=== PATIENT | female | born 1935 | race Two or more races ===

== ENCOUNTER 2024-05-13 19:04 | Inpatient (IN) | payer SELFPAY ==
[~2024-05-13] VITALS: Ht 157.5 cm; Wt 75.6 kg
--- NOTE | 2024-05-13 19:10 | ED.PDOC ---
History of Present Illness HPI Comments 88-year-old female with PMHx Seizures, HTN brought in by EMS presents with a chief complaint of generalized weakness, cough, and SOB. Per daughter, patient is visiting from [place] and had the "flu" x 4 weeks ago and has "progressively getting weaker". Patients daughter mentions that patient has been losing her strength and not able to ambulate like she normally does. Patient is sating at 91% on room air and was placed on 6L via O2 and is on a current dual neb breathing treatment. Time Seen by MD: 19:02 Reviewed Notes: Medications, Allergies Allergies: Coded Allergies: NO KNOWN ALLERGIES (Unverified , 05/13/24) Information Source: Relative (Child), Emergency Med Personnel Mode of Arrival: EMS Severity: Moderate Timing: Days Duration: Since onset Prehospital treatment: Breathing Tx, Oxygen Past Medical History PAST MEDICAL HISTORY: HTN, Seizures Surgical History: Denies all surgeries CARD TENDER History: Denies all CARD TENDER Hx Family History Family History: Reviewed,noncontributory to illness Social History Smoker: Non-Smoker Alcohol: Denies ETOH Use Drugs: Denies Drug Use Lives In: Home Constitutional: reports: weakness; denies: chills, diaphoresis, fatigue, fever, malaise, sweats, others EENTM: denies: blurred vision, double vision, ear bleeding, ear discharge, ear drainage, ear pain, ear ringing, eye pain, eye redness, hearing loss, mouth pain, mouth swelling, nasal discharge, nose bleeding, nose congestion, nose pain, photophobia, tearing, throat pain, throat swelling, voice changes, others Respiratory: reports: cough, shortness of breath; denies: hemoptysis, orthopnea, SOB at rest, SOB with excertion, stridor, wheezing, others Cardiovascular: denies: chest pain, dizzy spells, diaphoresis, Dyspnea on exertion, edema, irregular heart beat, left arm pain, lightheadedness, palpitations, PND, syncope, others Gastrointestinal: denies: abdomen distended, abdominal pain, blood streaked bowels, constipated, diarrhea, dysphagia, difficulty swallowing, hematemesis, melena, nausea, poor appetite, poor fluid intake, rectal bleeding, rectal pain, vomiting, others Genitourinary: denies: abnormal vagina bleeding, burning, dyspareunia, dysuria, flank pain, frequency, hematuria, incontinence, pain, , vagina discharge, urgency, others Neurological: denies: dizziness, fainting, headache, left sided numbness, left sided weakness, numbness, paresthesia, pre-existing deficit, right sided numbness, right sided weakness, seizure, speech problems, tingling, tremors, weakness, others Musculoskeletal: denies: back pain, gout, joint pain, joint swelling, muscle pain, muscle stiffness, neck pain, others Integumetry: denies: bruises, change in color, change in hair/nails, dryness, laceration, lesions, lumps, rash, wounds, others Allergic/Immunocompromised: denies: Difficulty Healing, Frequent Infections, Hives, Itching, others Hematologic/Lymphatic: denies: anemia, blood clots, easy bleeding, easy bruising, swollen glands, others Endocrine: denies: excessive hunger, excessive sweating, excessive thirst, excessive urination, flushing, intolerance to cold, intolerance to heat, unexplained weight gain, unexplained weight loss, others Psychiatric: denies: anxiety, bipolar disorder, depression, hopeless, panic disorder, schizophrenia, sleepless, suicidal, others All Other Systems: Reviewed and Negative Physical Exam General Appearance: No Apparent Distress, Normal HEENT: Normal ENT Inspection, Pharynx Normal, TMs Normal Neck: Full Range of Motion, Non-Tender, Normal, Normal Inspection Respiratory: Chest Non-Tender, Lungs Clear, No Accessory Muscle Use, No Respiratory Distress, Normal Breath Sounds Cardiovascular: No Edema, No JVD, No Murmur, No Gallop, Normal Peripheral Pulses, Regular Rate/Rhythm Breast Exam: Deferred Gastrointestinal: No Organomegaly, Non Tender, No Pulsatile Mass, Normal Bowel Sounds, Soft Genitalia: Deferred Pelvic: Deferred Rectal: Deferred Extremities: No calf tenderness, Normal capillary refill, Normal inspection, Normal range of motion, Non-tender, No pedal edema Musculoskeletal : Apperance: Normal Neurologic: Alert, mobile application architect II-XII nml as Tested, No Motor Deficits, Normal Affect, Normal Mood, No Sensory Deficits Cerebellar Function: Normal Reflexes: Normal Skin: Dry, Normal Color, Warm Lymphatic: No Adenopathy Was a procedure done? Was a procedure done?: No Differential Dx Considerations may include: viral syndrome, uti, pneumonia, electrolyte abnormality, acs, X-Ray, Labs, Meds, VS Vital Signs Date Time Temp Pulse Resp B/P (MAP) Pulse Ox O2 Delivery O2 Flow Rate FiO2 05/13/24 23:00 99.1 95 25 135/61 (85) 95 99.1 05/13/24 20:30 99.7 05/13/24 19:55 101.5 93 27 122/60 (80) 94 101.5 05/13/24 19:55 93 27 94 Nasal Cannula* 2 28 05/13/24 19:10 100.3 96 24 150/79 (102) 95 05/13/24 19:08 89 Lab Test 05/13/24 20:40 05/13/24 20:33 05/13/24 19:29 Range/Units Lactic Acid Level 0.9 0.4-2.0 mmol/L Troponin I High Sensitivity 5 4 </=34 ng/L Influenza Type A Antigen Negative Negative Influenza Type B Antigen Negative Negative SARS-CoV-2 Antigen (Rapid) Negative NEGATIVE White Blood Count 7.7 4.4-10.8 10^3/uL Red Blood Count 3.70 L 4.0-5.20 10^6/uL Hemoglobin 11.5 L 12.2-16.2 g/dL Hematocrit 33.3 L 36.0-46.0 % Mean Corpuscular Volume 89.8 80.0-100.0 fL Mean Corpuscular Hemoglobin 31.0 28.0-32.0 pg Mean Corpuscular Hemoglobin Concent 34.5 32.0-36.0 g/dL Red Cell Distribution Width 13.9 11.8-14.3 % Platelet Count 308 140-450 10^3/uL Mean Platelet Volume 6.8 L 6.9-10.8 fL Neutrophils (%) (Auto) 83.2 H 37.0-80.0 % Lymphocytes (%) (Auto) 10.9 10.0-50.0 % Monocytes (%) (Auto) 5.5 0.0-12.0 % Eosinophils (%) (Auto) 0.3 0.0-7.0 % Basophils (%) (Auto) 0.1 0.0-2.0 % Neutrophils # (Auto) 6.4 1.6-8.6 10 ^3/uL Lymphocytes # (Auto) 0.8 0.4-5.4 10 ^3/uL Monocytes # (Auto) 0.4 0-1.3 10 ^3/uL Eosinophils # (Auto) 0 0-0.8 10 ^3/uL Basophils # (Auto) 0 0-0.2 10 ^3/uL Nucleated Red Blood Cells 0.1 % Sodium Level 121 L 136-145 mmol/L Potassium Level 4.6 3.5-5.1 mmol/L Chloride Level 91 L 98-107 mmol/L Carbon Dioxide Level 20 20-31 mmol/L Anion Gap 10 5-15 Blood Urea Nitrogen 10 9-23 mg/dL Creatinine 0.94 0.550-1.02 mg/dL Glomerular Filtration Rate Calc 59 >90 mL/min BUN/Creatinine Ratio 10.6 10.0-20.0 Serum Glucose 124 H 74-106 mg/dL Calcium Level 9.5 8.7-10.4 mg/dL B-Type Natriuretic Peptide 27.76 0-100 pg/mL Current Medications Medications (Trade) Dose Ordered Sig/Yasemin Route Start Time Stop Time Status Last Admin Sodium Chloride 1,000 ml @ 1,000 mls/hr Q1H ONCE IV 05/13/24 20:30 05/13/24 21:40 DC 05/13/24 21:48 Ondansetron HCl (Zofran) 4 mg ONCE ONCE IV 05/13/24 20:30 05/13/24 21:40 DC 05/13/24 21:49 Cefepime HCl 50 ml @ 12.5 mls/hr ONCE ONCE IV 05/13/24 20:30 05/14/24 00:29 05/13/24 23:01 Time of 1ST Reevaluation: 19:32 Reevaluation 1ST: Unchanged Patient Education/Counseling: Diagnosis, Treatment, Prognosis Family Education/Counseling: Diagnosis, Treatment, Prognosis Departure 1 Departure Time of Disposition: 23:57 (Patient with worsening weakness and fever concerning for infection. Patient is not septic. ) Impression: Primary Impression: Fever Qualified Codes: R50.9 - Fever, unspecified Additional Impression: Weakness Disposition: 09 ADMITTED INPATIENT Admit to: Med Surg Condition: Serious Critical Care Note Critical Care Time?: No Stability Stability form required: No I personally scribed for GUANAKITO APPIAH MD ([email or web address]) on 05/13/24 at 19:10. Electronically submitted by Vj Hussein ([email or web address]). GUANAKITO APPIAH MD May 13, 2024 19:10
[2024-05-13 19:55] VITALS: PULSE 93; RESP 27; O2SAT 94
[2024-05-13 20:03] LABS: White Blood Cell 7.7 10^3/uL (4.4-10.8)
[2024-05-13 20:07] LABS: Anion Gap 10 (5-15); Calcium 9.5 mg/dL (8.7-10.4); Carbon Dioxide 20 mmol/L (20-31); Potassium 4.6 mmol/L (3.5-5.1)
[2024-05-13 20:10] LABS: Basophils # (auto) 0 10 ^3/uL (0-0.2); Basophils % (auto) 0.1 % (0.0-2.0); Eosinophils # (auto) 0 10 ^3/uL (0-0.8); Eosinophils % (auto) 0.3 % (0.0-7.0); Hematocrit 33.3 % (36.0-46.0); Hemoglobin 11.5 g/dL (12.2-16.2); Lymphocytes # (auto) 0.8 10 ^3/uL (0.4-5.4); Lymphocytes % (auto) 10.9 % (10.0-50.0); Mean Corpuscular Hgb Conc. 34.5 g/dL (32.0-36.0); Mean Corpuscular Volume 89.8 fL (80.0-100.0); Monocytes # (auto) 0.4 10 ^3/uL (0-1.3); Monocytes % (auto) 5.5 % (0.0-12.0); Neutrophils # (auto) 6.4 10 ^3/uL (1.6-8.6); Neutrophils % (auto) 83.2 % (37.0-80.0); Nucleated Red Blood Cells % 0.1 %; Platelet Count (auto) 308 10^3/uL (140-450); Red Cell Distribution Width 13.9 % (11.8-14.3)
[2024-05-13 20:13] LABS: BUN/Creatinine Ratio 10.6 (10.0-20.0); Blood Urea Nitrogen 10 mg/dL (9-23)
[2024-05-13 20:16] LABS: Chloride 91 mmol/L (98-107); Glucose 124 mg/dL (74-106); Sodium 121 mmol/L (136-145)
--- NOTE | 2024-05-13 20:21 | DVH ---
CHEST RADIOGRAPH Indication: sob Technique: Single frontal view of the chest was obtained Comparison: None FINDINGS: Lines and Tubes: None Lungs: No focal consolidation. Pleura: No effusion. No pneumothorax. Cardiomediastinal contours: Unremarkable Bones: No acute osseous abnormality. IMPRESSION: No acute cardiopulmonary disease.
[2024-05-13] MEDS: ACETAMINOPHEN 325 MG TAB PO ONE (20:30)
[2024-05-13 21:08] LABS: COVID19 ANTIGEN SOFIA FIA NEGATIVE (NEGATIVE); Rapid Influenza A Negative (Negative); Rapid Influenza B Negative (Negative)
[2024-05-13] MEDS: SODIUM CHLORIDE 0.9% 1,000 ML IV ONE (21:48)
[2024-05-13] MEDS: ONDANSETRON HCL 4 MG/2 ML VIAL IV ONE (21:49)
[2024-05-13] MEDS: CEFEPIME 2GM/50ML NS 50 ML IV ONE (23:01)
[2024-05-14] VITALS (12 sets, daily range): BP systolic 118–150; BP diastolic 56–65; PULSE 62–95; RESP 16–18; TEMP 98.2–101.5; O2SAT 93–100
[2024-05-14] MEDS ORDERED: VANCOMYCIN PER PHARMACY 0 MG IV SCH (02:15)
[2024-05-14] MEDS: guaiFENesin 200 MG/10 ML UD PO ONE (02:16)
[2024-05-14] MEDS: SODIUM CHLORIDE 0.9% 1,000 ML IV ONE (02:18)
[2024-05-14] MEDS: VANCOMYCIN 1.75GM/350ML 350 ML IV ONE (03:04)
[2024-05-14 03:27] LABS: Protein, Urine 41.9 mg/dL (1-14)
[2024-05-14 03:30] LABS: Benzodiazephine Screen, Urine Neg (NEGATIVE); Creatinine, Urine 116.12 mg/dL (30.0-125.0); Opiate Scree,Urine Neg (NEGATIVE); Phencyclidine Screen, Urine Neg (NEGATIVE); Urine Protein/Creatinine Ratio 0.36
[2024-05-14 03:31] LABS: Urine Bacteria MANY /hpf (None Seen); Urine Blood Negative /uL (Negative); Urine Budding Yeast OCCASIONAL /hpf (None Seen); Urine Clarity Turbid (Clear); Urine Color Yellow (Yellow); Urine Mucus FEW (None Seen); Urine Protein, UAD TRACE (Negative); Urine Specific Gravity 1.017 (1.001-1.035); Urine Urobilinogen Normal (Negative); Urine WBC 28 /hpf (0 - 5)
[2024-05-14 03:32] LABS: Amphetamine Screen, Urine Neg (NEGATIVE); Barbiturate Scree,Urine Neg (NEGATIVE); Cannabinoid Screen, Urine Neg (NEGATIVE); Cocaine Screen, Urine Neg (NEGATIVE)
[2024-05-14 03:58] LABS: Alanine Aminotransferase 14 U/L (7-40); Albumin 4.1 g/dL (3.2-4.8); Alkaline Phosphatase 68 U/L (46-116); Anion Gap 6 (5-15); Aspartate Aminotransferase 17 U/L (13-40); BUN/Creatinine Ratio 13.8 (10.0-20.0); Blood Urea Nitrogen 12 mg/dL (9-23); Carbon Dioxide 22 mmol/L (20-31); Potassium 4.5 mmol/L (3.5-5.1)
[2024-05-14 03:59] LABS: Bilirubin, Total 0.4 mg/dL (0.2-1.0); Total Protein 6.3 g/dL (5.7-8.2)
[2024-05-14 04:21] LABS: Calcium 7.6 mg/dL (8.7-10.4); Chloride 94 mmol/L (98-107); Glucose 113 mg/dL (74-106); Sodium 122 mmol/L (136-145)
[2024-05-14] MEDS ORDERED: SERT-206 PO (06:17)
[2024-05-14] MEDS ORDERED: LEVE500T40 PO (06:17)
[2024-05-14] MEDS ORDERED: ATOR10TA PO (06:17)
[2024-05-14] MEDS ORDERED: OMEP20TA PO (06:17)
[2024-05-14] MEDS ORDERED: CAND16TA PO (06:17)
[2024-05-14] MEDS ORDERED: SOLI5TAB42 PO (06:17)
[2024-05-14] MEDS ORDERED: CAR25T PO (06:17)
--- NOTE | 2024-05-14 06:18 | DVHHPRES ---
History of Present Illness Resident Creating Document: ARGENTINA PAYTON RESIDENT History of Present Illness Patient is a 88-year-old female with a past medical history as described was brought to the ED with a chief complaint of flu-like illness and generalized weakness since 3-4 days. Patient is a yakut speaking female who is accompanied by her daughter who recently came from [place], about 4 weeks ago she had shingles under the left breast following which she was given 1 week of anti viral medication. Since past 1 week patient was having flu-like as with the symptoms of cough and associated yellowish green phlegm with the associated chills and had fever but not documented, shortness of breath and mild increased work of breathing. The daughter reports that patient has been getting weaker and sleeps most of the day and is unable to get out of the bed without support. At her baseline she is able to walk with a walker. Past medical history: Hypertension, hyperlipidemia, GERD, history of seizure( 1 seizure in 2017) Past surgical history: Back surgery for lumbar fusion, left shoulder surgery for rotator cuff tear Social history: Patient lives with family and denies smoking, alcohol, drug use Home medications: Candesartan 16 mg q.d., atorvastatin 10 mg q.d., Keppra 750 mg b.i.d., sertraline 50 mg hs, omeprazole 20 mg q.d. Review of Systems Review of Systems Patient seen and examined at bedside. Patient has wet coughing but is not able to cough up sputum and feels congested. Reports generalized weakness Denies chest pain, shortness of breath while on oxygen, headache, body aches. Allergies: Coded Allergies: NO KNOWN ALLERGIES (Unverified , 05/13/24) Medications Current Medications Medications Dose Ordered Sig/Yasemin Route Start Time Stop Time Status Last Admin Dose Admin Levetiracetam 750 mg BID PO 05/14/24 10:00 Azithromycin 250 ml @ 125 mls/hr DAILY IV 05/14/24 09:00 Losartan Potassium 50 mg DAILY PO 05/14/24 10:00 Atorvastatin Calcium 20 mg HS PO 05/14/24 22:00 Enoxaparin Sodium 40 mg DAILY SC 05/14/24 10:00 Vancomycin HCl 0 ml @ 0 mls/hr UD IV 05/14/24 02:15 UNV Cefepime HCl 50 ml @ 12.5 mls/hr Q12HR IV 05/14/24 10:00 Albuterol 2.5 mg Q8HR NEB 05/14/24 06:00 Ipratropium [place] 0.5 mg Q8HR NEB 05/14/24 06:00 Acetaminophen 650 mg Q6HP PRN PO 05/14/24 06:15 Exam Vital Signs Vital Signs Date Time Temp Pulse Resp B/P (MAP) Pulse Ox O2 Delivery O2 Flow Rate FiO2 05/14/24 03:00 79 24 142/59 (86) 94 05/14/24 02:30 101.5 2.0 28 101.5 05/13/24 19:55 Nasal Cannula* Exam Physical Examination Constitutional: Patient was alert and oriented to time, place and person. Lying in bed comfortably in no acute distress. Gen - no pallor, no icterus, no cyanosis, no clubbing, no LAD, no edema . Skin - Patients skin is warm and dry. HEENT - normocephalic, atraumatic, moist mucous membranes. Neck - full ROM, no LAD, mild JVP elevation with a pulse seen above the mid SCM Pulmonary - B/L vesicular breath sounds with mild right basilar crackles, mild scattered wheezes cardiovascular - normal S1,S2 heard. no murmurs heard. peripheral pulses radial 2+, pedal 2+. GI - soft abdomen without tenderness to palpation. no hepatospleenomegaly. Bowel sounds normoactive Neurological - Bilateral upper extremity strength 5/5, bilateral lower extremity strength 5/5, patient has a right foot drop, no facial droop, normal speech, no tremor, no sensory deficiets. Labs/Xrays Labs Test 05/14/24 03:05 05/14/24 02:09 05/13/24 20:40 05/13/24 20:33 Range/Units Sodium Level 122 L 136-145 mmol/L Potassium Level 4.5 3.5-5.1 mmol/L Chloride Level 94 L 98-107 mmol/L Carbon Dioxide Level 22 20-31 mmol/L Anion Gap 6 5-15 Blood Urea Nitrogen 12 9-23 mg/dL Creatinine 0.87 0.550-1.02 mg/dL Glomerular Filtration Rate Calc 65 >90 mL/min BUN/Creatinine Ratio 13.8 10.0-20.0 Serum Glucose 113 H 74-106 mg/dL Serum Osmolality 254 L 278-298 mOsm/kg Calcium Level 7.6 L 8.7-10.4 mg/dL Total Bilirubin 0.4 0.2-1.0 mg/dL Aspartate Amino Transferase (AST) 17 13-40 U/L Alanine Aminotransferase (ALT) 14 7-40 U/L Alkaline Phosphatase 68 46-116 U/L Total Protein 6.3 5.7-8.2 g/dL Albumin 4.1 3.2-4.8 g/dL Thyroid Stimulating Hormone (TSH) 0.30 L 0.55-4.78 uIU/mL Urine Color Yellow Yellow Urine Clarity Turbid H Clear Urine pH 6.0 5.0-9.0 Urine Specific [place] 1.017 1.001-1.035 Urine Protein Trace H Negative Urine Ketones Negative Negative Urine Blood Negative Negative /uL Urine Nitrite 2+ H Negative Urine Bilirubin Negative Negative Urine Urobilinogen Normal Negative mg/dL Urine Leukocyte Esterase 2+ Negative /uL Urine RBC <1 0 - 4 /hpf Urine WBC 28 0 - 5 /hpf Urine Squamous Epithelial Cells Few <5 /hpf Urine Bacteria Many H None Seen /hpf Urine Mucus Few None Seen Urine Yeast (Budding) Occasional None Seen /hpf Urine Osmolality 410 mOsm/kg Urine Creatinine 116.12 30.0-125.0 mg/dL Urine Protein/Creatinine Ratio 0.36 Urine Sodium 49 40-220 mmol/L Urine Glucose Normal Normal mg/dL Urine Total Protein 41.9 H 1-14 mg/dL Urine Opiates Screen Neg NEGATIVE Urine Fentanyl Screen Neg NEGATIVE Urine Barbiturates Screen Neg NEGATIVE Urine Phencyclidine Screen Neg NEGATIVE Urine Amphetamines Screen Neg NEGATIVE Urine Benzodiazepines Screen Neg NEGATIVE Urine Cocaine Screen Neg NEGATIVE Urine Cannabinoids Screen Neg NEGATIVE Lactic Acid Level 0.9 0.4-2.0 mmol/L Troponin I High Sensitivity 5 </=34 ng/L Influenza Type A Antigen Negative Negative Influenza Type B Antigen Negative Negative SARS-CoV-2 Antigen (Rapid) Negative NEGATIVE Test 05/13/24 19:29 Range/Units White Blood Count 7.7 4.4-10.8 10^3/uL Red Blood Count 3.70 L 4.0-5.20 10^6/uL Hemoglobin 11.5 L 12.2-16.2 g/dL Hematocrit 33.3 L 36.0-46.0 % Mean Corpuscular Volume 89.8 80.0-100.0 fL Mean Corpuscular Hemoglobin 31.0 28.0-32.0 pg Mean Corpuscular Hemoglobin Concent 34.5 32.0-36.0 g/dL Red Cell Distribution Width 13.9 11.8-14.3 % Platelet Count 308 140-450 10^3/uL Mean Platelet Volume 6.8 L 6.9-10.8 fL Neutrophils (%) (Auto) 83.2 H 37.0-80.0 % Lymphocytes (%) (Auto) 10.9 10.0-50.0 % Monocytes (%) (Auto) 5.5 0.0-12.0 % Eosinophils (%) (Auto) 0.3 0.0-7.0 % Basophils (%) (Auto) 0.1 0.0-2.0 % Neutrophils # (Auto) 6.4 1.6-8.6 10 ^3/uL Lymphocytes # (Auto) 0.8 0.4-5.4 10 ^3/uL Monocytes # (Auto) 0.4 0-1.3 10 ^3/uL Eosinophils # (Auto) 0 0-0.8 10 ^3/uL Basophils # (Auto) 0 0-0.2 10 ^3/uL Nucleated Red Blood Cells 0.1 % B-Type Natriuretic Peptide 27.76 0-100 pg/mL Assessment/Plan Assessment/Plan Assessment # acute hypoxic respiratory failure # community-acquired pneumonia likely due to ?viral ?gram+/- ?Atypical # hypertensive heart disease # hyponatremia ?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 Euthyroid sick syndrome ? Hyperthyroidism # dyslipidemia Plan - on 2 L oxygen via nasal cannula - COVID and influenza negative - sputum culture pending - vancomycin per pharmacy - cefepime 1 g IV q12 hours - azithromycin 500 mg IV q.d. - TSH 0.3, free T3 and T4 pending - vitamin B12 pending - on Keppra 750 mg b.i.d.(home dose) - on losartan 50 mg( at home patient takes candesartan 16 mg eq to losartan 100 mg) - on atorvastatin - DuoNebs q.8 hour - echo pending - evaluation for SIADH, urine osmolality> 400, serum osmolality 254, urine sodium 49. Sertraline held - patient given 1 L NS bolus in ER, further fluids held - monitor BMP for serum sodium. Trending 121--> 122 Goals of care discussed with the patient and the daughter for over 27 minutes. DNR Plan discussed Dr. Jesus Plan discussed with: Patient, Daughter My Orders Orders - ARGENTINA PAYTON Procedure Category Date Status Time Admit ADMIT 05/14/24 Transmitted 01:48 Oxygen By Nasal RT 05/14/24 Transmitted Cannula 01:48 Jewelry Casting Model Maker For ANJANA 05/14/24 In Process 24 Hours 01:48 Emergency Dysrhythmia ANJANA 05/14/24 In Process Protocol 01:48 Notify Md Of Changes ANJANA 05/14/24 In Process From Base 01:48 Levetiracetam Tablet PHA 05/14/24 In Process (Keppra Tablet) 10:00 Respiratory Culture NANCY 05/14/24 Logged W/ Gs 01:51 Azithromycin 500mg/ PHA 05/14/24 In Process 250ml (Zithromax 50 09:00 Losartan Tablet PHA 05/14/24 In Process (Cozaar Tablet) 10:00 Atorvastatin (Lipitor) PHA 05/14/24 In Process 22:00 Enoxaparin Sodium PHA 05/14/24 In Process (Lovenox) 10:00 Sodium Chloride 0.9% PHA 05/14/24 In Process 02:00 Echo 2d Mode Cardiac US 05/14/24 Logged DOP 02:04 Vancomycin Per PHA 05/14/24 Pending Pharmacy 02:15 Cefepime 1gm/ 50ml PHA 05/14/24 In Process (Maxipime 1gm/50ml) 10:00 Albuterol Medneb PHA 05/14/24 In Process (Ventolin Medneb) 06:00 Mrsa Screen NANCY 05/14/24 Uncollected 02:13 Ipratropium Medneb PHA 05/14/24 In Process (Atrovent Medneb) 06:00 Communication Order ORDERS 05/14/24 Transmitted 02:22 Code Status CODE 05/14/24 Transmitted 05:14 * Swallow Request ST 05/14/24 Transmitted 05:21 Pureed DIET 05/14/24 Transmitted Breakfast Acetaminophen Tablet PHA 05/14/24 In Process (Tylenol Tablet) 06:15 Date of Service: May 14, 2024 Billing Provider: ARGENTINA PAYTON Common Visit Codes: [id number] INP/OBS CARE (HIGH) Secondary Visit Codes: [id number] CARE PLAN 30 MINUTES ARGENTINA PAYTON May 14, 2024 06:18 ELIAS JESUS MD May 14, 2024 11:20
[2024-05-14] MEDS: ALBUTEROL SULF 2.5 MG/0.5ML(0.5%) NEB SOLN NEB SCH (06:39)
[2024-05-14] MEDS: IPRATROPIUM BROM 0.5 MG/2.5ML INH SOL NEB SCH (06:40)
[2024-05-14] MEDS: ACETAMINOPHEN 325 MG TAB PO PRN (07:37)
[2024-05-14] MEDS: PANTOPRAZOLE 40 MG TAB PO ONE (07:37)
[2024-05-14] MEDS: AZITHROMYCIN 500MG/ 250ML 250 ML IV SCH (08:20)
[2024-05-14] MEDS: levETIRAcetam 500 MG TAB PO SCH (08:27)
[2024-05-14] MEDS: LOSARTAN POTASSIUM 50 MG TAB PO SCH (08:30)
[2024-05-14] MEDS: ENOXAPARIN SOD 40 MG/0.4 ML SYRINGE SC SCH (08:32)
[2024-05-14 10:29] LABS: Basophils # (auto) 0 10 ^3/uL (0-0.2); Basophils % (auto) 0.2 % (0.0-2.0); Eosinophils # (auto) 0 10 ^3/uL (0-0.8); Eosinophils % (auto) 0.6 % (0.0-7.0); Hematocrit 29.9 % (36.0-46.0); Hemoglobin 9.8 g/dL (12.2-16.2); Lymphocytes # (auto) 1.3 10 ^3/uL (0.4-5.4); Lymphocytes % (auto) 16.1 % (10.0-50.0); Mean Corpuscular Hemoglobin 29.9 pg (28.0-32.0); Mean Corpuscular Hgb Conc. 32.7 g/dL (32.0-36.0); Mean Corpuscular Volume 91.3 fL (80.0-100.0); Monocytes # (auto) 0.5 10 ^3/uL (0-1.3); Monocytes % (auto) 6.3 % (0.0-12.0); Neutrophils % (auto) 76.8 % (37.0-80.0); Platelet Count (auto) 309 10^3/uL (140-450); Red Blood Cells 3.28 10^6/uL (4.0-5.20); Red Cell Distribution Width 13.8 % (11.8-14.3); White Blood Cell 7.8 10^3/uL (4.4-10.8)
[2024-05-14 10:40] LABS: Potassium 4.1 mmol/L (3.5-5.1)
[2024-05-14 10:41] LABS: Anion Gap 10 (5-15)
[2024-05-14 10:42] LABS: Calcium 9.2 mg/dL (8.7-10.4)
[2024-05-14 10:47] LABS: BUN/Creatinine Ratio 12.1 (10.0-20.0); Blood Urea Nitrogen 11 mg/dL (9-23)
[2024-05-14 11:18] LABS: Carbon Dioxide 19 mmol/L (20-31); Chloride 93 mmol/L (98-107); Glucose 120 mg/dL (74-106); Sodium 122 mmol/L (136-145)
[2024-05-14] MEDS: CEFEPIME 1GM/ 50ML 50 ML IV SCH (11:29)
[2024-05-14] MEDS: SODIUM CHLORIDE 0.9% 1,000 ML IV SCH (11:36)
[2024-05-14] MEDS: DOXYCYCLINE 100MG/250ML 250 ML IV SCH (11:45)
[2024-05-14] MEDS: DOXYCYCLINE 100MG/250ML 250 ML IV ONE (11:45)
--- NOTE | 2024-05-14 11:45 | DVHPNRES ---
Progress Note Date Seen: May 14, 2024 Resident Creating Document: VANNESA STARK RESIDENT Medical Necessity Reason Pt with a Central, PICC or Fol: No Subjective Review of Systems Patient is 88 years old female with a past medical history of hypertension, hyperlipidemia, history of seizure in 2017, GERD, history of recurrent UTI, restless leg syndrome, over active bladder, history of chronic hyponatremia came to the hospital due to cough and fever. Patient is a gentleman speaking person visiting her family. history was taken from patient and her daughter Reza at bedside. Patient has been having flu-like symptom for last 1 week like cough and cold. Patient had for sputum yellowish green for last 1 week with some chest heaviness. Chest heaviness would increase with exertion. Patient also complained of feeling chilled and feverish and feeling tired for last 1 week. Four days before patient had shingles in the left side of the chest under left breast and was treated with antiviral for 1 week which resolved. Patient had a brain surgery for meningioma in 2017 and following that had 1 episode of seizure. Patient denied any chest pain, palpitation, acute joint pain or swelling, abdominal pain or diarrhea, dysarthria or change in vision. Initial lab workup revealed WBC 7.7, hemoglobin 11.5, platelet 308, sodium 122>121, potassium 4.5, serum creatinine 0.99, serum osmolality 254, TSH 0.29, BNP 27.76, troponin I 5, lactic acid 0.9, calcium 7.6, UDS negative, urinalysis revealed UTI with leukocyte esterase 2+, WBC 28, many bacteria, occasional yeast. Urine osmolality 410, uterine creatinine 111.12, uterine protein creatinine ratio 0.36, urinary sodium 49, urinary 12 protein 41.9. Patient tested negative for influenza type A and B and COVID-19, CHEST X-RAY-no acute cardiopulmonary disease. PMH-hypertension, hyperlipidemia, history of seizure in 2017, GERD, history of recurrent UTI, history of chronic hyponatremia ,restless leg syndrome, over active bladder PSH- history of cranial surgery for meningioma, surgery for the lumbar fusion, left shoulder surgery for rotator cuff tear Allergy- NKDA Personal History/ Social History- patient's lives in [place], visiting her family in [place], denies smoking/alcoholism/drug abuse Patient was seen today at the bedside. Patient complaining of cough and feeling tired Cardiovascular- deny acute chest pain or palpitation Respiratory- denies wheezing. Resolved shingles under the left breast Gastrointestinal- denies any rectal bleeding, nausea or vomiting Musculoskeletal-denies acute joint swelling or tenderness or redness Neurological- denies acute dysarthria, dysphagia, change in vision Psychiatry- denies depression or SI or HI Skin- denies acute rash or purpura Objective vital signs Vital Sign Date Time Temp Pulse Resp B/P (MAP) Pulse Ox O2 Delivery O2 Flow Rate FiO2 05/14/24 09:00 99.2 79 18 139/65 (89) 93 99.2 05/14/24 05:20 Nasal Cannula* 2 28 Total Intake and Output 05/13/24 05/13/24 05/14/24 15:00 23:00 07:00 Intake Total 1000 ml 283.33 ml Balance 1000 ml 283.33 ml medications Current Medications Medications Dose Ordered Sig/Yasemin Route Start Time Stop Time Status Last Admin Dose Admin Levetiracetam 750 mg BID PO 05/14/24 10:00 05/14/24 08:27 750 MG Azithromycin 250 ml @ 125 mls/hr DAILY IV 05/14/24 09:00 05/14/24 08:40 125 MLS/HR Losartan Potassium 50 mg DAILY PO 05/14/24 10:00 05/14/24 08:30 50 MG Atorvastatin Calcium 20 mg HS PO 05/14/24 22:00 Enoxaparin Sodium 40 mg DAILY SC 05/14/24 10:00 05/14/24 08:32 40 MG Vancomycin HCl 0 ml @ 0 mls/hr UD IV 05/14/24 02:15 Cefepime HCl 50 ml @ 12.5 mls/hr Q12HR IV 05/14/24 10:00 Albuterol 2.5 mg Q8HR NEB 05/14/24 06:00 Ipratropium [place] 0.5 mg Q8HR NEB 05/14/24 06:00 Acetaminophen 650 mg Q6HP PRN PO 05/14/24 06:15 05/14/24 07:37 650 MG Pantoprazole Sodium 40 mg DAILY@0600 PO 05/15/24 06:00 Examination General examination- awake, alert, oriented, conversant HEENT- PEERLA, no acute nasal discharge Cardiovascular- S1-S2 audible, rate and rhythm regular, no murmur Respiratory- CTAB, no wheeze or rhonchi Gastrointestinal-nontender, bowel sound+. Nondistended Musculoskeletal-no acute joint swelling or tenderness or redness# Lower extremity- no leg edema Neurological- cranial nerves intact, no acute dysarthria or dysphagia Psychiatry- denies depression or SI or HI Skin- no acute rash or purpura laboratory and microbiology Laboratory Tests 05/14/24 09:59 Test 05/14/24 09:59 Range/Units Serum Glucose 120 H 74-106 mg/dL Problem List/Assessment/Plan Problem List/Assessment/Plan # Acute hypoxic respiratory failure due to acute pneumonitis secondary to viral infection # acute pneumonitis secondary to acute viral infection # suspected sepsis secondary to pneumonia/UTI # UTI, occasional yeast in the urine # upper respiratory infection # hyponatremia, recurrent # hypertension # hyperlipidemia # history of seizure # GERD #Impaired thyroid function test #restless leg syndrome, #over active bladder # status post shingles Ordered nephrology consult for further evaluation and care Continue ceftriaxone 1 g IV daily Continue doxycycline 100 mg IV b.i.d. Continue Diflucan 100 mg p.o. daily Continue normal saline IV 100 mL/hour Continue nebulization as prescribed Continue losartan 50 mg p.o. daily Atorvastatin 20 mg p.o. q.h.s. Resume other home medications Continue other medication as prescribed Goals of care/advance care planning; FULL CODE; discussed with the patient >15 minutes PUD prophylaxis: Pantoprazole DVT prophylaxis: Lovenox Plan discussed with Dr. Jesus, nursing staff, patient Total time spent on patient evaluation, chart review, assessment and plan, discussion discussion >30 minutes Plan discussed with: Patient Plan discussed with: Patient, Daughter, Other (RN) My Orders My Orders Orders - VANNESA STARK RESIDENT Procedure Category Date Status Time Vitamin D, 25-Hydroxy LAB 05/14/24 In Process 08:36 Folate (Folic Acid) LAB 05/14/24 In Process 08:36 Sodium Chloride 0.9% PHA 05/14/24 Logged 11:30 Basic Metabolic Panel LAB 05/14/24 Logged 18:00 Free T3 LAB 05/14/24 Transmitted 11:23 Free T4 (Free LAB 05/14/24 Transmitted Thyroxine) 11:23 Date of Service: May 14, 2024 Billing Provider: ELIAS JESUS MD Common Visit Codes: [id number] INP/OBS CARE(HIGH) Secondary Visit Codes: [id number] CARE PLAN 30 MINUTES VANNESA STARK May 14, 2024 11:45 ELIAS JESUS MD May 14, 2024 22:37
[2024-05-14 11:52] LABS: Free T3 2.58 pg/mL (2.3-4.2); Free T4 (Free Thyroxine) 1.37 ng/dL (0.89-1.76)
[2024-05-14] MEDS: CARBIDOPA W LEVODOPA 25/100mg TABLET PO SCH ×2 (12:00→18:07)
--- NOTE | 2024-05-14 15:00 | DVHINCON2 ---
Date of service: May 14, [address] Riggs Reason for Consultation Hyponatremia History of Present Illness Patient is 88 y/o female with PMH of HTN, brain meningioma and Seizures, who is visiting from [place] is admitted for generalized weakness and flu like symptoms x 3-4 days. She denies N/V or diarrhea On admission patient found to have Na od 121 mEq/L , nephrology is consulted Past Medical History Past medical history: Hypertension, hyperlipidemia, GERD, meningiom, however the patient is a seizure ( 1 seizure in 2017) Past Surgical History Past surgical history: Meningioma surgery Back surgery for lumbar fusion, left shoulder surgery for rotator cuff tear Allergies: Coded Allergies: NO KNOWN ALLERGIES (Unverified , 05/13/24) Home Meds Reported Medications Levetiracetam (KEPPRA TABLET) 500 Mg Tb, 750 MG PO BID, TAB 05/14/24 Solifenacin Succinate (Solifenacin Succinate) 5 Mg Tab, 5 MG PO DAILY, TAB 05/14/24 Sertraline Hcl (Sertraline Hcl) 50 Mg Tab, 50 MG PO QPM for 30 Days, MG 05/14/24 Omeprazole (Gnp Omeprazole) 20 Mg Tab, 1 TAB PO DAILY, #90 TAB 1 Refill 05/14/24 Levodopa W/Carbidopa (SINEMET 25/100MG) 1 Tab Tb, 1 TAB PO QPM, TAB 05/14/24 Atorvastatin Calcium (Lipitor) 10 Mg Tab, 1 TAB PO QPM, #90 TAB 1 Refill 05/14/24 Candesartan Cilexetil (Atacand) 16 Mg Tab, 16 MG PO, TAB 05/14/24 Current Medications Current Medications Medications (Trade) Dose Ordered Sig/Yasemin Route PRN Reason Start Time Stop Time Status Last Admin Atorvastatin Calcium (Lipitor) 20 mg HS PO 05/14/24 22:00 05/14/24 20:59 Pantoprazole Sodium (Protonix Tablet) 40 mg DAILY@0600 PO 05/15/24 06:00 05/15/24 05:57 Sodium Chloride 1,000 ml @ 100 mls/hr Q10H IV 05/14/24 11:30 05/15/24 06:43 DC 05/14/24 11:36 Doxycycline Hyclate 250 ml @ 125 mls/hr Q12H IV 05/14/24 11:45 05/14/24 15:25 DC Sertraline HCl (Zoloft) 50 mg DAILY PO 05/15/24 10:00 05/15/24 08:37 DC Carbidopa/Levodopa (Sinemet 25/ 100MG) 1 tab QID PO 05/14/24 12:00 05/14/24 12:43 DC Carbidopa/Levodopa (Sinemet 25/ 100MG) 1 tab QPM PO 05/14/24 18:00 05/14/24 18:07 Fluconazole (Diflucan Tablet) 100 mg DAILY PO 05/15/24 10:00 05/15/24 08:59 Urea (Ure-Na) 15 gm BID PO 05/14/24 22:00 05/15/24 10:36 Doxycycline Monohydrate (Vibramycin Tablet) 100 mg Q12HR PO 05/14/24 22:00 05/15/24 08:58 Ceftriaxone Sodium 50 ml @ 100 mls/hr DAILY@09 IV 05/15/24 09:00 05/15/24 08:39 Sertraline HCl (Zoloft) 50 mg QPM PO 05/15/24 22:00 Family History: Patient reports no known family medical history. Review of Systems All 12 items ROS reviewed with the patient, malia is significant except what is mentioned in the HPI H&P Exam Vital Signs/I&O Vital Sign Date Time Temp Pulse Resp B/P (MAP) Pulse Ox O2 Delivery O2 Flow Rate FiO2 05/15/24 08:59 144/63 05/15/24 08:47 97.7 05/15/24 08:46 74 20 98 05/15/24 06:22 Room Air 0.0 05/15/24 06:22 21 Intake and Output 05/14/24 05/15/24 19:00 07:00 Intake Total 2086 ml 500 ml Balance 2086 ml 500 ml Intake Oral 1786 ml 500 ml IV Total 300 ml # Voids 6 # Bowel Movements 1 2 Physical Exam Patient is awake alert appeared in no acute distress Lungs clear to auscultation bilaterally Cardiac exam regular rate and rhythm GI soft nontender normal Extremities no clubbing cyanosis or edema Neuro nonfocal Labs/Diagnostic Data Labs/Diagnostic Data Laboratory Tests Test 05/15/24 06:29 05/14/24 18:42 05/14/24 09:59 12/25/24 03:05 Range/Units Sodium Level 126 L 124 L 122 L 122 L 136-145 mmol/L Potassium Level 4.6 4.6 4.1 4.5 3.5-5.1 mmol/L Chloride Level 97 L 95 L 93 L 94 L 98-107 mmol/L Carbon Dioxide Level 22 23 19 L 22 20-31 mmol/L Anion Gap 7 6 10 6 5-15 Blood Urea Nitrogen 15 11 11 12 9-23 mg/dL Creatinine 0.74 0.86 0.91 0.87 0.550-1.02 mg/dL Glomerular Filtration Rate Calc 79 66 61 65 >90 mL/min BUN/Creatinine Ratio 20.3 H 12.8 12.1 13.8 10.0-20.0 Serum Glucose 98 104 120 H 113 H 74-106 mg/dL Calcium Level 9.5 9.4 9.2 7.6 L 8.7-10.4 mg/dL Magnesium Level 1.9 1.8 1.6-2.6 mg/dL Random Vancomycin Level 8.2 5-10 ug/mL White Blood Count 7.8 4.4-10.8 10^3/uL Red Blood Count 3.28 L 4.0-5.20 10^6/uL Hemoglobin 9.8 L 12.2-16.2 g/dL Hematocrit 29.9 #L 36.0-46.0 % Mean Corpuscular Volume 91.3 80.0-100.0 fL Mean Corpuscular Hemoglobin 29.9 28.0-32.0 pg Mean Corpuscular Hemoglobin Concent 32.7 32.0-36.0 g/dL Red Cell Distribution Width 13.8 11.8-14.3 % Platelet Count 309 140-450 10^3/uL Mean Platelet Volume 6.9 6.9-10.8 fL Neutrophils (%) (Auto) 76.8 37.0-80.0 % Lymphocytes (%) (Auto) 16.1 10.0-50.0 % Monocytes (%) (Auto) 6.3 0.0-12.0 % Eosinophils (%) (Auto) 0.6 0.0-7.0 % Basophils (%) (Auto) 0.2 0.0-2.0 % Neutrophils # (Auto) 6.0 1.6-8.6 10 ^3/uL Lymphocytes # (Auto) 1.3 0.4-5.4 10 ^3/uL Monocytes # (Auto) 0.5 0-1.3 10 ^3/uL Eosinophils # (Auto) 0 0-0.8 10 ^3/uL Basophils # (Auto) 0 0-0.2 10 ^3/uL Nucleated Red Blood Cells 0.0 % Hemoglobin A1c 5.6 <5.7 % A1C Vitamin B12 Level 1369 H 211-911 pg/mL Folic Acid 47.36 >5.38 ng/mL Thyroid Stimulating Hormone (TSH) 0.29 L 0.30 L 0.55-4.78 uIU/mL Serum Osmolality 254 L 278-298 mOsm/kg Total Bilirubin 0.4 0.2-1.0 mg/dL Aspartate Amino Transferase (AST) 17 13-40 U/L Alanine Aminotransferase (ALT) 14 7-40 U/L Alkaline Phosphatase 68 46-116 U/L Total Protein 6.3 5.7-8.2 g/dL Albumin 4.1 3.2-4.8 g/dL Vitamin D 25-Hydroxy 35.7 30.0-100 ng/mL Free Thyroxine (T4) Calculated 1.37 0.89-1.76 ng/dL Free Triiodothyronine (T3) pg/mL 2.58 2.3-4.2 pg/mL Test 05/14/24 02:09 05/13/24 20:40 05/13/24 20:33 05/13/24 19:29 Range/Units Urine Color Yellow Yellow Urine Clarity Turbid H Clear Urine pH 6.0 5.0-9.0 Urine Specific [place] 1.017 1.001-1.035 Urine Protein Trace H Negative Urine Ketones Negative Negative Urine Blood Negative Negative /uL Urine Nitrite 2+ H Negative Urine Bilirubin Negative Negative Urine Urobilinogen Normal Negative mg/dL Urine Leukocyte Esterase 2+ Negative /uL Urine RBC <1 0 - 4 /hpf Urine WBC 28 0 - 5 /hpf Urine Squamous Epithelial Cells Few <5 /hpf Urine Bacteria Many H None Seen /hpf Urine Mucus Few None Seen Urine Yeast (Budding) Occasional None Seen /hpf Urine Osmolality 410 mOsm/kg Urine Creatinine 116.12 30.0-125.0 mg/dL Urine Protein/Creatinine Ratio 0.36 Urine Sodium 49 40-220 mmol/L Urine Glucose Normal Normal mg/dL Urine Total Protein 41.9 H 1-14 mg/dL Urine Opiates Screen Neg NEGATIVE Urine Fentanyl Screen Neg NEGATIVE Urine Barbiturates Screen Neg NEGATIVE Urine Phencyclidine Screen Neg NEGATIVE Urine Amphetamines Screen Neg NEGATIVE Urine Benzodiazepines Screen Neg NEGATIVE Urine Cocaine Screen Neg NEGATIVE Urine Cannabinoids Screen Neg NEGATIVE Lactic Acid Level 0.9 0.4-2.0 mmol/L Troponin I High Sensitivity 5 4 </=34 ng/L Influenza Type A Antigen Negative Negative Influenza Type B Antigen Negative Negative SARS-CoV-2 Antigen (Rapid) Negative NEGATIVE White Blood Count 7.7 4.4-10.8 10^3/uL Red Blood Count 3.70 L 4.0-5.20 10^6/uL Hemoglobin 11.5 L 12.2-16.2 g/dL Hematocrit 33.3 L 36.0-46.0 % Mean Corpuscular Volume 89.8 80.0-100.0 fL Mean Corpuscular Hemoglobin 31.0 28.0-32.0 pg Mean Corpuscular Hemoglobin Concent 34.5 32.0-36.0 g/dL Red Cell Distribution Width 13.9 11.8-14.3 % Platelet Count 308 140-450 10^3/uL Mean Platelet Volume 6.8 L 6.9-10.8 fL Neutrophils (%) (Auto) 83.2 H 37.0-80.0 % Lymphocytes (%) (Auto) 10.9 10.0-50.0 % Monocytes (%) (Auto) 5.5 0.0-12.0 % Eosinophils (%) (Auto) 0.3 0.0-7.0 % Basophils (%) (Auto) 0.1 0.0-2.0 % Neutrophils # (Auto) 6.4 1.6-8.6 10 ^3/uL Lymphocytes # (Auto) 0.8 0.4-5.4 10 ^3/uL Monocytes # (Auto) 0.4 0-1.3 10 ^3/uL Eosinophils # (Auto) 0 0-0.8 10 ^3/uL Basophils # (Auto) 0 0-0.2 10 ^3/uL Nucleated Red Blood Cells 0.1 % Sodium Level 121 L 136-145 mmol/L Potassium Level 4.6 3.5-5.1 mmol/L Chloride Level 91 L 98-107 mmol/L Carbon Dioxide Level 20 20-31 mmol/L Anion Gap 10 5-15 Blood Urea Nitrogen 10 9-23 mg/dL Creatinine 0.94 0.550-1.02 mg/dL Glomerular Filtration Rate Calc 59 >90 mL/min BUN/Creatinine Ratio 10.6 10.0-20.0 Serum Glucose 124 H 74-106 mg/dL Calcium Level 9.5 8.7-10.4 mg/dL B-Type Natriuretic Peptide 27.76 0-100 pg/mL Microbiology Date/Time Source Procedure Growth Status 05/14/24 03:44 Nose MRSA Screen - Final Complete Assessment Hyponatremia, 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 I discussed my plan of care with the patient, her daughter and the primary nurse at the bedside I would like to thank for the consult, will follow up Plan discussed with: Patient JOEY MAST MD May 14, 2024 15:00
[2024-05-14] MEDS: FLUCONAZOLE 100 MG TAB PO ONE (15:33)
[2024-05-14] MEDS ORDERED: KEP500T PO (18:24)
[2024-05-14 19:09] LABS: Potassium 4.6 mmol/L (3.5-5.1)
[2024-05-14 19:10] LABS: Anion Gap 6 (5-15); Calcium 9.4 mg/dL (8.7-10.4); Carbon Dioxide 23 mmol/L (20-31)
[2024-05-14 19:15] LABS: BUN/Creatinine Ratio 12.8 (10.0-20.0); Blood Urea Nitrogen 11 mg/dL (9-23); Glucose 104 mg/dL (74-106)
[2024-05-14 19:17] LABS: Chloride 95 mmol/L (98-107); Sodium 124 mmol/L (136-145)
[2024-05-14] MEDS: ATORVASTATIN 20 MG TAB PO SCH (20:59)
[2024-05-14] MEDS: DOXYCYCLINE 100 MG TAB/CAP PO SCH (20:59)
[2024-05-14] MEDS: UREA 15gm PO Powder PKG PO SCH (20:59)
[2024-05-15] VITALS (9 sets, daily range): BP systolic 136–152; BP diastolic 63–73; PULSE 61–86; RESP 14–20; TEMP 97.8–98.7; O2SAT 94–100
[2024-05-15] MEDS: PANTOPRAZOLE 40 MG TAB PO SCH (05:57)
[2024-05-15 07:44] LABS: Anion Gap 7 (5-15); Calcium 9.5 mg/dL (8.7-10.4); Carbon Dioxide 22 mmol/L (20-31); Potassium 4.6 mmol/L (3.5-5.1)
[2024-05-15 07:45] LABS: Chloride 97 mmol/L (98-107); Sodium 126 mmol/L (136-145)
[2024-05-15 07:48] LABS: Glucose 98 mg/dL (74-106)
[2024-05-15 07:50] LABS: BUN/Creatinine Ratio 20.3 (10.0-20.0); Blood Urea Nitrogen 15 mg/dL (9-23)
[2024-05-15 07:51] LABS: Magnesium 1.9 mg/dL (1.6-2.6)
[2024-05-15] MEDS: cefTRIAXone 1GM/50ML D5W 50 ML IV SCH (08:39)
[2024-05-15] MEDS: FLUCONAZOLE 100 MG TAB PO SCH (08:59)
[2024-05-15] MEDS ORDERED: SERTRALINE HCL 50 MG TAB PO SCH ×2 (10:00→22:00)
--- NOTE | 2024-05-15 10:55 | DVHPN2 ---
Progress Note Date Seen: May 15, 2024 Medical Necessity Reason Pt with a Central, PICC or Fol: No Subjective Patient reports: No new complaints Other Systems: Patient seen and examined by myself today in follow-up Objective vital signs Vital Sign Date Time Temp Pulse Resp B/P (MAP) Pulse Ox O2 Delivery O2 Flow Rate FiO2 05/15/24 08:59 144/63 05/15/24 08:47 97.7 05/15/24 08:46 74 20 98 05/15/24 06:22 Room Air 0.0 05/15/24 06:22 21 Total Intake and Output 05/14/24 05/14/24 05/15/24 15:00 23:00 07:00 Intake Total 1248 ml 838 ml 500 ml Balance 1248 ml 838 ml 500 ml medications Current Medications Medications Dose Ordered Sig/Yasemin Route Start Time Stop Time Status Last Admin Dose Admin Levetiracetam 750 mg BID PO 05/14/24 10:00 05/15/24 08:59 Losartan Potassium 50 mg DAILY PO 05/14/24 10:00 05/15/24 08:59 Atorvastatin Calcium 20 mg HS PO 05/14/24 22:00 05/14/24 20:59 Enoxaparin Sodium 40 mg DAILY SC 05/14/24 10:00 05/15/24 08:58 Albuterol 2.5 mg Q8HR NEB 05/14/24 06:00 05/15/24 06:22 Ipratropium [place] 0.5 mg Q8HR NEB 05/14/24 06:00 05/15/24 06:22 Acetaminophen 650 mg Q6HP PRN PO 05/14/24 06:15 05/15/24 08:47 Pantoprazole Sodium 40 mg DAILY@0600 PO 05/15/24 06:00 05/15/24 05:57 Carbidopa/Levodopa 1 tab QPM PO 05/14/24 18:00 05/14/24 18:07 Fluconazole 100 mg DAILY PO 05/15/24 10:00 05/15/24 08:59 Urea 15 gm BID PO 05/14/24 22:00 05/15/24 10:36 Doxycycline Monohydrate 100 mg Q12HR PO 05/14/24 22:00 05/15/24 08:58 Ceftriaxone Sodium 50 ml @ 100 mls/hr DAILY@09 IV 05/15/24 09:00 05/15/24 08:39 Sertraline HCl 50 mg QPM PO 05/15/24 22:00 Examination: LUNGS:Normal, CVS:Normal, MSK:Normal laboratory and microbiology Laboratory Tests 05/15/24 06:29 05/14/24 09:59 Test 05/15/24 06:29 Range/Units Serum Glucose 98 74-106 mg/dL Microbiology Date/Time Source Procedure Growth Status 05/14/24 03:44 Nose MRSA Screen - Final Complete 05/14/24 02:09 Voided Urine Urine Culture - Preliminary Resulted 05/13/24 20:47 Blood Blood Culture - Preliminary NO GROWTH AFTER 24 HOURS OF INCUBATION. 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
[2024-05-15] MEDS ORDERED: AUG875T PO (11:09)
[2024-05-15] MEDS ORDERED: UREA15PO PO (11:09)
--- NOTE | 2024-05-15 12:53 | ECG ---
[facility] Test Date: 2024-05-13 Test Time: 19:08:25 Pat Name: JOI ABEL Department: er Room: 0220T B Gender: F Rotoprinter: sunny : 1935 Requested By: GUANAKITO APPIAH Order Number: [id number] Reading MD: Casey Duncan Measurements Intervals [place] Rate: 89 P: 70 WA: 158 QRS: 58 QRSD: 99 T: 73 QT: 324 QTc: 395 Interpretive Statements Sinus rhythm Probable left atrial enlargement ST elevation, consider inferior injury Electronically Signed On 05-15-2024 14:17:14 PST by Casey Duncan Please click the below link to view image of tracing.
--- NOTE | 2024-05-15 17:41 | DVHSR ---
APPROVED REPORT EXAM: Two-dimensional and M-mode echocardiogram with Doppler and color Doppler. Blood Pressure: 152/73 mmHg INDICATION Dyspnea RISK FACTORS Height: 62, Weight: 166 DIMENSIONS LVDd4.2 (3.8-5.7cm)LA (2D)3.0 (1.9-4.0cm)Aortic Root3.0 (2.0-3.7cm) LVDs2.3 (2.5-4.0cm)LA (MM) (1.9-4.0cm)Aortic Cusp Exc1.2 (1.5-2.0cm) EF (%) 76.0 (55-70%)Rt. Atrium (1.9-4.0cm)Asc. Aorta cm IVSd0.9 (0.7-1.1cm)RV (D) (1.8-2.4cm) PWd1.1 (0.7-1.1cm) Mitral Valve MitralMitral Stenosis E wave0.81m/sMV Mean GR.mmHg A wave1.20m/sMV Peak GR.mmHg E/A ratio0.72D MVAcm2 DECEL [id number] 1/2 [place] Aortic Valve Aortic ValveAortic Stenosis V10.94m/Joe Mean GR.5mmHg V21.39m/Joe Peak GR.8mmHg LVOT Diameter1.9 (1.8-2.4cm)Doppler AVA1.92cm2 2D AVA2.19cm2 Pulmonic Valve V21.00m/s Tricuspid Valve TR Velocity2.39m/s [id number] Other Information Quality : Technically LimitedRhythm : Technically limited study due to body habitus. Conclusion Normal left ventricular size and dimension. Normal left ventricular systolic function estimated ejec tion fraction 55% there is a grade 1 diastolic dysfunction. Normal right ventricular size and dimension. Normal right ventricular systolic function. Normal biatrial size and dimension. Normal aortic valve structure and function. Normal mitral valve structure and function. Normal tricuspid valve structure and function. The pulmonary valve is grossly normal. No pericardial effusion.
--- NOTE | 2024-05-15 19:23 | DVHDSRES ---
Discharge Summary Date of Admission Resident Creating Document: VANNESA STARK RESIDENT May 14, 2024 at 01:48 Date of Discharge: May 15, 2024 Admitting Diagnosis Shortness of breaths and cough and cold Labs/Diagnostic Data: Laboratory Results Test 05/15/24 06:29 05/14/24 09:59 05/14/24 03:05 05/14/24 02:09 Sodium Level 126 mmol/L (136-145) Potassium Level 4.6 mmol/L (3.5-5.1) Chloride Level 97 mmol/L (98-107) Carbon Dioxide Level 22 mmol/L (20-31) Anion Gap 7 (5-15) Blood Urea Nitrogen 15 mg/dL (9-23) Creatinine 0.74 mg/dL (0.550-1.02) Glomerular Filtration Rate Calc 79 mL/min (>90) BUN/Creatinine Ratio 20.3 (10.0-20.0) Serum Glucose 98 mg/dL (74-106) Calcium Level 9.5 mg/dL (8.7-10.4) Magnesium Level 1.9 mg/dL (1.6-2.6) Random Vancomycin Level 8.2 ug/mL (5-10) White Blood Count 7.8 10^3/uL (4.4-10.8) Red Blood Count 3.28 10^6/uL (4.0-5.20) Hemoglobin 9.8 g/dL (12.2-16.2) Hematocrit 29.9 % (36.0-46.0) Mean Corpuscular Volume 91.3 fL (80.0-100.0) Mean Corpuscular Hemoglobin 29.9 pg (28.0-32.0) Mean Corpuscular Hemoglobin Concent 32.7 g/dL (32.0-36.0) Red Cell Distribution Width 13.8 % (11.8-14.3) Platelet Count 309 10^3/uL (140-450) Mean Platelet Volume 6.9 fL (6.9-10.8) Neutrophils (%) (Auto) 76.8 % (37.0-80.0) Lymphocytes (%) (Auto) 16.1 % (10.0-50.0) Monocytes (%) (Auto) 6.3 % (0.0-12.0) Eosinophils (%) (Auto) 0.6 % (0.0-7.0) Basophils (%) (Auto) 0.2 % (0.0-2.0) Neutrophils # (Auto) 6.0 10 ^3/uL (1.6-8.6) Lymphocytes # (Auto) 1.3 10 ^3/uL (0.4-5.4) Monocytes # (Auto) 0.5 10 ^3/uL (0-1.3) Eosinophils # (Auto) 0 10 ^3/uL (0-0.8) Basophils # (Auto) 0 10 ^3/uL (0-0.2) Nucleated Red Blood Cells 0.0 % Hemoglobin A1c 5.6 % A1C (<5.7) Vitamin B12 Level 1369 pg/mL (211-911) Folic Acid 47.36 ng/mL (>5.38) Thyroid Stimulating Hormone (TSH) 0.29 uIU/mL (0.55-4.78) Serum Osmolality 254 mOsm/kg (278-298) Total Bilirubin 0.4 mg/dL (0.2-1.0) Aspartate Amino Transferase (AST) 17 U/L (13-40) Alanine Aminotransferase (ALT) 14 U/L (7-40) Alkaline Phosphatase 68 U/L (46-116) Total Protein 6.3 g/dL (5.7-8.2) Albumin 4.1 g/dL (3.2-4.8) Vitamin D 25-Hydroxy 35.7 ng/mL (30.0-100) Free Thyroxine (T4) Calculated 1.37 ng/dL (0.89-1.76) Free Triiodothyronine (T3) pg/mL 2.58 pg/mL (2.3-4.2) Urine Color Yellow (Yellow) Urine Clarity Turbid (Clear) Urine pH 6.0 (5.0-9.0) Urine Specific [place] 1.017 (1.001-1.035) Urine Protein Trace (Negative) Urine Ketones Negative (Negative) Urine Blood Negative /uL (Negative) Urine Nitrite 2+ (Negative) Urine Bilirubin Negative (Negative) Urine Urobilinogen Normal mg/dL (Negative) Urine Leukocyte Esterase 2+ /uL (Negative) Urine RBC <1 /hpf (0 - 4) Urine WBC 28 /hpf (0 - 5) Urine Squamous Epithelial Cells Few /hpf (<5) Urine Bacteria Many /hpf (None Seen) Urine Mucus Few (None Seen) Urine Yeast (Budding) Occasional /hpf (None Urine Osmolality 410 mOsm/kg Urine Creatinine 116.12 mg/dL (30.0-125.0) Urine Protein/Creatinine Ratio 0.36 Urine Sodium 49 mmol/L (40-220) Urine Glucose Normal mg/dL (Normal) Urine Total Protein 41.9 mg/dL (1-14) Urine Opiates Screen Neg (NEGATIVE) Urine Fentanyl Screen Neg (NEGATIVE) Urine Barbiturates Screen Neg (NEGATIVE) Urine Phencyclidine Screen Neg (NEGATIVE) Urine Amphetamines Screen Neg (NEGATIVE) Urine Benzodiazepines Screen Neg (NEGATIVE) Urine Cocaine Screen Neg (NEGATIVE) Urine Cannabinoids Screen Neg (NEGATIVE) Test 05/13/24 20:40 05/13/24 20:33 05/13/24 19:29 Lactic Acid Level 0.9 mmol/L (0.4-2.0) Troponin I High Sensitivity 5 ng/L (</=34) Influenza Type A Antigen Negative (Negative) Influenza Type B Antigen Negative (Negative) SARS-CoV-2 Antigen (Rapid) Negative (NEGATIVE) B-Type Natriuretic Peptide 27.76 pg/mL (0-100) Other Laboratory Tests 05/15/24 06:29 05/14/24 09:59 Brief Hx & Hospital Course: Patient is 88 years old female with a past medical history of hypertension, hyperlipidemia, history of seizure in 2017, GERD, history of recurrent UTI, restless leg syndrome, over active bladder, history of chronic hyponatremia came to the hospital due to cough and fever. Patient is a gentleman speaking person visiting her family. history was taken from patient and her daughter Reza at bedside. Patient has been having flu-like symptom for last 1 week like cough and cold. Patient had for sputum yellowish green for last 1 week with some chest heaviness. Chest heaviness would increase with exertion. Patient also complained of feeling chilled and feverish and feeling tired for last 1 week. Four days before patient had shingles in the left side of the chest under left breast and was treated with antiviral for 1 week which resolved. Patient had a brain surgery for meningioma in 2017 and following that had 1 episode of seizure. Patient denied any chest pain, palpitation, acute joint pain or swelling, abdominal pain or diarrhea, dysarthria or change in vision. Initial lab workup revealed WBC 7.7, hemoglobin 11.5, platelet 308, sodium 122>121, potassium 4.5, serum creatinine 0.99, serum osmolality 254, TSH 0.29, BNP 27.76, troponin I 5, lactic acid 0.9, calcium 7.6, UDS negative, urinalysis revealed UTI with leukocyte esterase 2+, WBC 28, many bacteria, occasional yeast. Urine osmolality 410, uterine creatinine 111.12, uterine protein creatinine ratio 0.36, urinary sodium 49, urinary 12 protein 41.9. Patient tested negative for influenza type A and B and COVID-19, CHEST X-RAY-no acute cardiopulmonary disease. Patient was treated conservatively during hospitalization. Patient's symptom improved clinically and patient was breathing well in room air. Patient was seen by life science teacher for recurrent hyponatremia and diagnosed as SIADH. Patient was discharged home with oral antibiotic Augmentin 875 mg p.o. b.i.d. for 5 days, urea 15 gm pow p.o. b.i.d.. Patient was advised to resume home medications. Patient's meds were sent to the pharmacy electronically. Patient was advised to follow up with the primary care physician in 1 week. Patient was hemodynamically stable on discharge General examination- awake, alert, oriented, conversant HEENT- PEERLA, no acute nasal discharge Cardiovascular- S1-S2 audible, rate and rhythm regular, no murmur Respiratory- CTAB, no wheeze or rhonchi Gastrointestinal-nontender, bowel sound+. Nondistended Musculoskeletal-no acute joint swelling or tenderness or redness# Lower extremity- no leg edema Neurological- cranial nerves intact, no acute dysarthria or dysphagia Psychiatry- denies depression or SI or HI Skin- no acute rash or purpura Operations or Procedures Diagnostic Imaging Report : [id number] Signed PATIENT: JOI ABEL ACCT: [id number] UNIT: [id number] : 1935 LOC: [facility] [place] AGE / SEX: 88 / F ADM STATUS: DIS IN SERVICE 0204 ORDERING PHYSICIAN: ARGENTINA PAYTON RESIDENT PROCEDURE(s): ECIDC - ECHO 2D MODE CARDIAC DOP REASON: SOB ORDER NUMBER(s): [id number], ACCESSION NUMBER(s): [id number] APPROVED REPORT EXAM: Two-dimensional and M-mode echocardiogram with Doppler and color Doppler. Blood Pressure: 152/73 mmHg INDICATION Dyspnea RISK FACTORS Height: 62, Weight: 166 DIMENSIONS LVDd 4.2 (3.8-5.7cm) LA (2D) 3.0 (1.9-4.0cm) Aortic Root 3.0 (2.0- 3.7cm) LVDs 2.3 (2.5-4.0cm) LA (MM) (1.9-4.0cm) Aortic Cusp Exc 1.2 (1.5- 2.0cm) EF (%) 76.0 (55-70%) Rt. Atrium (1.9-4.0cm) Asc. Aorta cm IVSd 0.9 (0.7-1.1cm) RV (D) (1.8-2.4cm) PWd 1.1 (0.7-1.1cm) Mitral Valve Mitral Mitral Stenosis E wave 0.81m/s MV Mean GR. mmHg A wave 1.20m/s MV Peak GR. mmHg E/A ratio 0.7 2D MVA cm2 DECEL Time 278ms PRESS 1/2 Time ms Aortic Valve Aortic Valve Aortic Stenosis V1 0.94m/s AO Mean GR. 5mmHg V2 1.39m/s AO Peak GR. 8mmHg LVOT Diameter 1.9 (1.8-2.4cm) Doppler AMIRA 1.92cm2 2D AMIRA 2.19cm2 Pulmonic Valve V2 1.00m/s Tricuspid Valve TR Velocity 2.39m/s RVSP 26mmHg Other Information Quality : Technically Limited Rhythm : Technically limited study due to body habitus. Conclusion Normal left ventricular size and dimension. Normal left ventricular systolic function estimated ejection fraction 55% there is a grade 1 diastolic dysfunction. Normal right ventricular size and dimension. Normal right ventricular systolic function. Normal biatrial size and dimension. Normal aortic valve structure and function. Normal mitral valve structure and function. Normal tricuspid valve structure and function. The pulmonary valve is grossly normal. No pericardial effusion. SIGNED BY: PARISH ESTRADA MD SIGNED DATE/TIME: 05/15/24 1741 CC: DIAGNOSTIC IMAGING Diagnostic Imaging Report : [id number] Signed PATIENT: JOI ABEL ACCT: [id number] UNIT: [id number] : 1935 LOC: ER ROOM / BED: / AGE / SEX: 88 / F ADM STATUS: REG ER SERVICE 06 ORDERING PHYSICIAN: GUANAKITO APPIAH MD PROCEDURE(s): CXRP - CHEST PORTABLE REASON: sob ORDER NUMBER(s): [id number], ACCESSION NUMBER(s): [id number] CHEST RADIOGRAPH Indication: sob Technique: Single frontal view of the chest was obtained Comparison: None FINDINGS: Lines and Tubes: None Lungs: No focal consolidation. Pleura: No effusion. No pneumothorax. Cardiomediastinal contours: Unremarkable Bones: No acute osseous abnormality. IMPRESSION: No acute cardiopulmonary disease. ATED BY: TEMITOPE TARIQ DO DICTATED DATE/TIME: 05/13/242018 SIGNED BY: TEMITOPE TARIQ DO SIGNED DATE/TIME: 05/13/242018 CC: Condition at Discharge: Stable Final Diagnosis/Problems List # Acute hypoxic respiratory failure due to acute pneumonitis secondary to viral infection # acute pneumonitis secondary to acute viral infection # suspected sepsis secondary to pneumonia/UTI # UTI, occasional yeast in the urine #SIADH # upper respiratory infection # hyponatremia, recurrent # hypertension # hyperlipidemia # history of seizure # GERD #Impaired thyroid function test #restless leg syndrome, #over active bladder # status post shingles Discharge Disposition: Home Discharge Instruct/Medications Diet: Cardiac 2g Na,low cholest Activity: Light activity Follow Up/Referral: Please follow up with the primary care physician in 1 week Patient was counseled about the importance of med compliance Medications: Augmentin 875 mg p.o. b.i.d. for 5 days Urea 15 mg pow -15 g p.o. b.i.d. continue Please resume other home medications Discharge Statement: "Patient was advised to return to the ER or call 911 if any headaches, dizziness, shortness of breath, chest pain, abdominal pain, bleeding, fevers, or worsening of medical condition. Patient was counseled about treatment plan, medications, possible side effects, patientverbalized understanding. All questions were answered to the best of my ability. This discharge took greater then 30 minutes in planning, reviewing documentation, counseling the patient, and discussing with other team members." ASSESSMENT ASSESSMENT Assessment Hypoxic respiratory failure likely due to acute pneumonitis secondary to bacterial infection [facility] Date of Service: May 15, 2024 Billing Provider: ELIAS JESUS MD Common Visit Codes: 04390-JVM/OBS DISCH DAY >30min VANNESA STARK RESIDENT May 15, 2024 19:23 ELIAS JESUS MD May 16, 2024 08:46
== END 2024-05-15 15:15 | disposition home or self-care (01) | DRG 871 ==
LOC: EDBD 19:04 → ER 19:04 → TELE 05-14 01:48 → TELE-CENTR 05-14 05:04
PROVIDERS: ADMIT Internal Medicine; ATTEND Internal Medicine
DX: A41.89 Other specified sepsis (principal); J12.9 Viral pneumonia, unspecified; J96.01 Acute respiratory failure with hypoxia; N39.0 Urinary tract infection, site not specified; E87.1 Hypo-osmolality and hyponatremia; Z20.822 Contact with and (suspected) exposure to COVID-19; K21.9 Gastro-esophageal reflux disease without esophagitis; I10 Essential (primary) hypertension; E78.5 Hyperlipidemia, unspecified; G40.909 Epilepsy, unspecified, not intractable, without status epilepticus; G25.81 Restless legs syndrome; N32.81 Overactive bladder; J06.9 Acute upper respiratory infection, unspecified; D64.9 Anemia, unspecified; Z86.011 Personal history of benign neoplasm of the brain; Z79.899 Other long term (current) drug therapy
CPT/HCPCS: 36415; 71045; 80048; 80053; 80202; 80307; 81001; 82306; 82570; 82607; 82746; 83036; 83605; 83735; 83880; 83930; 83935; 84156; 84300; 84439; 84443; 84481; 84484; 85025; 87040; 87081; 87086; 87088; 87186; 87426; 87804; 93005; 93306; 94640; 96361; 96365; 96375; G0378; J0692; J2405